=== PATIENT | female | born 1950 | race Caucasian/White ===

== ENCOUNTER → 2022-01-04 | Outpatient (CLI) | payer MEDICARE ==
[~2022-01-04] MED LIST: SODIUM CHLORIDE 0.9% 500ML 500 ML ONE
== END ==
LOC: CT 14:45
PROVIDERS: ATTEND Urology
DX: N81.89 Other female genital prolapse (principal); N81.6 Rectocele; N95.2 Postmenopausal atrophic vaginitis; R80.9 Proteinuria, unspecified; K80.20 Calculus of gallbladder without cholecystitis without obstruction
CPT/HCPCS: 72194; J7040